=== PATIENT | female | born 1980 | race Two or more races ===

== ENCOUNTER 2019-05-24 11:21 | Emergency (ER) | payer OTHER ==
[~2019-05-24] VITALS: Ht 167.6 cm; Wt 79.0 kg
[2019-05-24 11:37] VITALS: BP 135/95
--- NOTE | 2019-05-24 11:50 | PHYS DOC ---
Adult General Chief Complaint Chief Complaint: SHORTNESS OF BREATH HPI HPI Patient is a 38 year old female presenting to the ED with a chief complaint of cough and shortness of breath. Patient states that the symptoms have been present for the last 3 days. 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 Patient denies having a fever. Patient denies . Review of Systems Review of Systems Patient complains of cough and shortness of breath. Patient denies fever, chills, nausea, vomiting, diarrhea, dysuria, chest pain, abdominal pain. All other systems were reviewed and found to be within normal limits, except as documented in this note. Allergies Allergies Allergies Coded Allergies Type Severity Reaction Last Updated Verified No Known Drug Allergies 05/24/19 No Physical Exam Physical Exam Constitutional: Well developed, well nourished, no acute distress, non-toxic appearance. [] HENT: Normocephalic, atraumatic Eyes: PERRLA, EOMI Neck: Normal range of motion Cardiovascular:Heart rate regular rhythm Lungs & Thorax: Bilateral ronchi Abdomen: Soft, nontender, nondistended, no focal abdominal tenderness Extremities: No tenderness, ROM intac Neurologic: Alert and oriented X 3 Current Patient Data Vital Signs Vital Signs Date Time Temp Pulse Resp B/P (MAP) Pulse Ox O2 Delivery O2 Flow Rate FiO2 05/24/19 11:37 98.1 100 18 135/95 (108) 98 Room Air 98.1 Lab Values Laboratory Tests Test 05/24/19 11:42 Influenza Type A Antigen Negative (NEGATIVE) Influenza Type B Antigen Negative (NEGATIVE) EKG EKG [] Radiology/Procedures Radiology/Procedures [] Impressions: Chest x-ray shows no acute disease. Course & Med Decision Making Course & Med Decision Making Pertinent Labs and Imaging studies reviewed. (See chart for details) Order chest x-ray and flu screen. Patient's oxygenation is within normal limits. Patient does not appear in any distress. Chest x-ray does not show any acute disease. Flu screen is negative. I have instructed patient that if she feels like she has the coronavirus, patient should be self quarantine herself for 14 days. Hospital policy is that we do not test for the coronavirus unless patient are hospitalized. Discussed results and plan of care with patient. Patient is instructed to follow up with PCP in one to 2 days. Appropriate discharge instructions given to patient to return to the ED or to seek immediate medical evaluation. Patient is instructed to return to the ED if symptoms worsen or if any concerns. Dragon Disclaimer Dragon Disclaimer This electronic medical record was generated, in whole or in part, using a voice recognition dictation system. Departure Departure Impression: Primary Impression: Upper respiratory infection, acute Disposition: 01 HOME, SELF-CARE Condition: STABLE Referrals: AARON FINLEY MD (PCP) Patient Instructions: Upper Respiratory Infection, Adult LISA IBARRA DO May 24, 2019 11:50
[2019-05-24 12:14] LABS: INFLUENZA A PATIENT NEGATIVE (NEGATIVE); INFLUENZA B PATIENT NEGATIVE (NEGATIVE)
--- NOTE | 2019-05-24 12:49 | RAD ---
EXAM: CHEST 1 VIEW History: Shortness of breath COMPARISON: None available. TECHNIQUE: Single portable radiograph of the chest FINDINGS: The cardiac silhouette is unremarkable. The lungs are clear bilaterally. The costophrenic sulci are clear and well demarcated. IMPRESSION: No radiographic evidence of an acute cardiopulmonary process. Electronically signed by: Antonio Hernandez MD (05/24/2019 12:46 PM) [id number]
== END 2019-05-24 13:15 | disposition home or self-care (01) ==
LOC: ER 11:21
DX: J06.9 Acute upper respiratory infection, unspecified (principal); R05 Cough; R06.02 Shortness of breath
CPT/HCPCS: 71045; 87804; 99284